=== PATIENT | female | born 1940 | race Caucasian/White ===

== ENCOUNTER 2021-09-01 22:51 | Emergency (ER) | payer MEDICARE ==
[2021-09-01] MEDS ORDERED: Sodium Chloride 0.9% 10 ML Syringe FLUSH PRN (22:57)
[2021-09-01] MEDS ORDERED: Sodium Chloride 0.9% 500 ML IV ONE (22:57)
[2021-09-01 23:22] LABS: ESTIMATED GFR 57 mL/min (>60); TROPONIN I HIGH SENSITIVITY 13.2 pg/mL (<=60.3)
[2021-09-02] MEDS ORDERED: Sodium Chloride 0.9% 10 ML Syringe FLUSH PRN (00:28)
[2021-09-02] MEDS ORDERED: Sodium Chloride 0.9% 100 ML IV SCH (00:30)
[2021-09-02] MEDS ORDERED: Iopamidol 755 Mg/ML 100 ML Bottle IV SCH (00:30)
== END 2021-09-02 03:15 | disposition home or self-care (01) ==
LOC: JP.ED 22:51
DX: I66.22 Occlusion and stenosis of left posterior cerebral artery (principal); H53.462 Homonymous bilateral field defects, left side; Z79.02 Long term (current) use of antithrombotics/antiplatelets
CPT/HCPCS: 36415; 70450; 70496; 70498; 80053; 82947; 84484; 85025; 85610; 85730; 93005; 93010; 96360; 96361; 99283; 99284; J3490; J7040; Q9967